=== PATIENT | female | born 1945 | race Caucasian/White ===

== ENCOUNTER 2020-02-20 11:49 | Emergency (ER) | payer OTHER ==
[~2020-02-20] VITALS: Ht 170.2 cm; Wt 158.8 kg
[2020-02-20 11:56] VITALS: BP 125/70
[2020-02-20] MEDS ORDERED: ONDANSETRON 4 MG/2 ML VIAL IVP ONE (13:25)
[2020-02-20] MEDS ORDERED: MORPHINE SULFATE 4 MG/ML SYR IVP ONE (13:25)
[2020-02-20 14:32] VITALS: BP 125/70
[2020-02-21] MEDS ORDERED: RIVA15TA1 PO (04:55)
[2020-02-21] MEDS ORDERED: TRAM50TA1 PO (04:55)
[2020-02-21] MEDS ORDERED: GLIP10TA3 PO (04:55)
[2020-02-21] MEDS ORDERED: PRAV20TA2 PO (04:55)
[2020-02-21] MEDS ORDERED: [UNRECOGNIZED DRUG - CODE] PO (04:55)
[2020-02-21] MEDS ORDERED: CHOL200072 PO (04:55)
[2020-02-21] MEDS ORDERED: AMLO5TAB PO (04:55)
[2020-02-21] MEDS ORDERED: BACL10TA4 PO (04:55)
== END 2020-02-20 14:33 | disposition home or self-care (01) ==
LOC: MED 11:49
DX: M54.2 Cervicalgia (principal); R51 Headache; E11.9 Type 2 diabetes mellitus without complications; I10 Essential (primary) hypertension
CPT/HCPCS: 70450; 72125; 96374; 96375; 99285; J2270; J2405

== ENCOUNTER 2020-02-21 02:54 | Inpatient (IN) | payer OTHER, SELFPAY ==
[~2020-02-21] VITALS: Ht 175.3 cm; Wt 133.8 kg
[2020-02-21 02:56] VITALS: BP 136/79
[2020-02-21] MEDS ORDERED: NACL 0.9% 1,000 ML IV ONE (03:10)
[2020-02-21 03:42] LABS: BASOPHILS # (AUTO) 0.1 K/uL (0.00-0.22); BASOPHILS % (AUTO) 0.4 % (0.0-2.0); EOSINOPHILS % (AUTO) 0.1 % (0.0-4.0); HEMATOCRIT 43.5 % (36-48); HEMOGLOBIN 14.5 g/dL (12.0-16.0); LYMPHOCYTES # (AUTO) 1.1 K/uL (2.5-16.5); LYMPHOCYTES % (AUTO) 9.2 % (20.5-51.1); MEAN CORPUSCULAR HEMOGLOBIN 30 pg (27-31); MEAN CORPUSCULAR HGB CONC 33 g/dL (33-37); MEAN CORPUSCULAR VOLUME 89.5 fL (80-94); MONOCYTES # (AUTO) 0.9 K/uL (0.8-1.0); MONOCYTES % (AUTO) 6.9 % (1.7-9.3); NEUTROPHILS # (AUTO) 10.3 K/uL (1.8-7.7); NEUTROPHILS % (AUTO) 83.4 % (42.2-75.2); PLATELET COUNT (AUTO) 324 K/uL (140-450); RED BLOOD CELL COUNT(AUTO) 4.85 MIL/uL (4.20-5.40); WHITE BLOOD COUNT (AUTO) 12.3 K/uL (4.8-10.8)
[2020-02-21 03:51] LABS: ALBUMIN 3.1 g/dL (3.4-5.0); ANION GAP 19.7 (8-16); ASPARTATE AMINOTRANSFERASE 13 U/L (15-37); CARBON DIOXIDE 22.5 mmol/L (21-32); CHLORIDE 89 mmol/L (98-107); CREATININE 1.3 mg/dL (0.6-1.3); GLUCOSE 159 mg/dL (74-106); POTASSIUM 4.2 mmol/L (3.5-5.1); SODIUM SERUM 127 mmol/L (136-145); TOTAL BILIRUBIN 1.2 mg/dL (0.0-1.0); UREA NITROGEN, BLOOD 35 mg/dL (7-18)
[2020-02-21 04:00] LABS: FREE T4 (FREE THYROXINE) 1.71 ng/dL (0.76-1.46); THYROID STIMULATING HORMONE 1.76 uIU/mL (0.34-3.74)
[2020-02-21] MEDS ORDERED: NACL 0.9% 1,000 ML IV SCH ×2 (04:35→05:49)
[2020-02-21] MEDS ORDERED: PRAV20TA2 PO (04:55)
[2020-02-21] MEDS ORDERED: TRAM50TA1 PO (04:55)
[2020-02-21] MEDS ORDERED: [UNRECOGNIZED DRUG - CODE] PO (04:55)
[2020-02-21] MEDS ORDERED: BACL10TA4 PO (04:55)
[2020-02-21] MEDS ORDERED: AMLO5TAB PO (04:55)
[2020-02-21] MEDS ORDERED: GLIP10TA3 PO (04:55)
[2020-02-21] MEDS ORDERED: RIVA15TA1 PO (04:55)
[2020-02-21] MEDS ORDERED: CHOL200072 PO (04:55)
[2020-02-21] MEDS ORDERED: HYDROcodone/APAP 5/325 MG 1 TAB TAB PO PRN (05:50)
[2020-02-21] MEDS ORDERED: ZOLPIDEM 5 MG TAB PO PRN (05:50)
[2020-02-21] MEDS ORDERED: LORazepam 2 MG/ML VIAL IM/IVP PRN (05:50)
[2020-02-21] MEDS ORDERED: ONDANSETRON 4 MG/2 ML VIAL IM/IVP PRN (05:50)
[2020-02-21] MEDS ORDERED: DOCUSATE SODIUM 100 MG GELCAP PO PRN (05:50)
[2020-02-21] MEDS ORDERED: POTASSIUM CHLORIDE 10 MEQ TABER PO PRN (05:50)
[2020-02-21] MEDS ORDERED: MAG SULF 2000 MG/WATER PREMIX 50 ML IV PRN (05:50)
[2020-02-21] MEDS ORDERED: ACETAMINOPHEN 325 MG TAB PO PRN (05:50)
[2020-02-21] MEDS ORDERED: MORPHINE SULFATE 2 MG/ML SYR IVP PRN (05:50)
[2020-02-21] MEDS ORDERED: traMADol 50 MG TAB PO PRN (05:55)
[2020-02-21] MEDS ORDERED: DEXTROSE 50% 50 ML SYR IVP PRN (07:35)
[2020-02-21] MEDS ORDERED: glipiZIDE 10 MG TAB PO SCH (07:55)
[2020-02-21 08:07] LABS: PROTHROMBIN TIME 10.3 secs (10.8-13.4)
[2020-02-21 08:18] LABS: APPEARANCE,URINE CLOUDY (CLEAR); BILIRUBIN,URINE 1+ (NEGATIVE); BLOOD, URINE NEGATIVE (NEGATIVE); COLOR,URINE AMBER (YELLOW); LEUKOCYTE ESTERASE ,URINE NEGATIVE (NEGATIVE); NITRITE, URINE NEGATIVE (NEGATIVE); UGLUCOSE NEGATIVE (NEGATIVE)
[2020-02-21] MEDS: NACL 0.9% 1,000 ML IV SCH ×2 (08:34→21:53)
[2020-02-21] MEDS: lisinopriL 20 MG TAB PO SCH (08:41)
[2020-02-21] MEDS: hydroCHLOROthiazide 25 MG TAB PO SCH (08:41)
[2020-02-21] MEDS: BACLOFEN 10 MG TAB PO SCH ×3 (08:41→17:30)
[2020-02-21] MEDS: CHOLECALCIFEROL 1,000 IU TAB PO SCH (08:42)
[2020-02-21] MEDS: RIVAROXABAN 15 MG TAB PO SCH (08:42)
[2020-02-21] MEDS: amLODIPine 5 MG TAB PO SCH (08:43)
[2020-02-21] MEDS ORDERED: NON-FORMULARY ITEM (Pravastatin Sodium* (Pravachol*) 20 MG) PO SCH (09:00)
[2020-02-21] MEDS ORDERED: NON-FORMULARY ITEM (Cholecalciferol (Vitamin D3) (Vitamin D3) 50 MCG) PO SCH (09:00)
[2020-02-21] MEDS ORDERED: NON-FORMULARY ITEM (Lisinopril/Hydrochlorothiazide (Lisinopril-Hctz 20-12.5 mg Tab) 1 TAB) PO SCH (09:00)
[2020-02-21 10:53] LABS: CHOL/HDL RATIO 2.8 (1-4.5); MAGNESIUM 1.7 mg/dL (1.8-2.4); PHOSPHORUS 3.3 mg/dL (2.5-4.9); THYROID STIMULATING HORMONE 1.75 uIU/mL (0.34-3.74)
[2020-02-21] MEDS: BLOOD GLUCOSE MONITORING 1 DEV DEV FS SCH ×3 (11:40→21:49)
[2020-02-21 13:46] LABS: ANION GAP 19.4 (8-16); CARBON DIOXIDE 22.2 mmol/L (21-32); CHLORIDE 90 mmol/L (98-107); CREATININE 1.1 mg/dL (0.6-1.3); GLUCOSE 116 mg/dL (74-106); POTASSIUM 3.6 mmol/L (3.5-5.1); SODIUM SERUM 128 mmol/L (136-145); UREA NITROGEN, BLOOD 29 mg/dL (7-18)
[2020-02-21 18:15] LABS: ANION GAP 21.4 (8-16); CARBON DIOXIDE 20.2 mmol/L (21-32); CHLORIDE 90 mmol/L (98-107); GLUCOSE 115 mg/dL (74-106); POTASSIUM 3.6 mmol/L (3.5-5.1); SODIUM SERUM 128 mmol/L (136-145); UREA NITROGEN, BLOOD 28 mg/dL (7-18)
[2020-02-21] MEDS: SIMVASTATIN 10 MG TAB PO SCH (21:17)
[2020-02-21] MEDS: INSULIN LISPRO SLIDING SCALE 100 UNITS/ML VIAL SUBQ PRN (21:51)
[2020-02-22 01:13] LABS: ANION GAP 21.3 (8-16); CARBON DIOXIDE 20.5 mmol/L (21-32); CHLORIDE 91 mmol/L (98-107); CREATININE 1.2 mg/dL (0.6-1.3); GLUCOSE 175 mg/dL (74-106); POTASSIUM 3.8 mmol/L (3.5-5.1); SODIUM SERUM 129 mmol/L (136-145); UREA NITROGEN, BLOOD 34 mg/dL (7-18)
[2020-02-22] MEDS: glipiZIDE 10 MG TAB PO SCH (06:12)
[2020-02-22 06:54] LABS: BASOPHILS % (AUTO) 0.3 % (0.0-2.0); HEMATOCRIT 45.2 % (36-48); LYMPHOCYTES # (AUTO) 1.1 K/uL (2.5-16.5); LYMPHOCYTES % (AUTO) 7.5 % (20.5-51.1); MEAN CORPUSCULAR HEMOGLOBIN 30 pg (27-31); MEAN CORPUSCULAR HGB CONC 33 g/dL (33-37); MEAN CORPUSCULAR VOLUME 90.1 fL (80-94); MONOCYTES # (AUTO) 0.8 K/uL (0.8-1.0); MONOCYTES % (AUTO) 5.4 % (1.7-9.3); NEUTROPHILS # (AUTO) 12.3 K/uL (1.8-7.7); NEUTROPHILS % (AUTO) 86.8 % (42.2-75.2); PLATELET COUNT (AUTO) 333 K/uL (140-450); RED BLOOD CELL COUNT(AUTO) 5.02 MIL/uL (4.20-5.40); RED CELL DISTRIBUTION WIDTH 13.3 % (11.6-13.7); WHITE BLOOD COUNT (AUTO) 14.2 K/uL (4.8-10.8)
[2020-02-22 07:06] LABS: ANION GAP 22.8 (8-16); CARBON DIOXIDE 17.1 mmol/L (21-32); CHLORIDE 92 mmol/L (98-107); CREATININE 1.4 mg/dL (0.6-1.3); GLUCOSE 182 mg/dL (74-106); POTASSIUM 3.9 mmol/L (3.5-5.1); SODIUM SERUM 128 mmol/L (136-145); UREA NITROGEN, BLOOD 38 mg/dL (7-18)
[2020-02-22 07:15] LABS: MAGNESIUM 1.8 mg/dL (1.8-2.4); PHOSPHORUS 3.2 mg/dL (2.5-4.9)
[2020-02-22] MEDS: BLOOD GLUCOSE MONITORING 1 DEV DEV FS SCH ×4 (07:47→21:38)
[2020-02-22] MEDS: INSULIN LISPRO SLIDING SCALE 100 UNITS/ML VIAL SUBQ PRN ×4 (07:58→22:09)
[2020-02-22 08:21] LABS: T4 (THYROXINE) 9.2 ug/dL (4.5-12.0)
[2020-02-22] MEDS ORDERED: ALBUTEROL SULFATE/IPRATROPIU 3 ML SOL IH PRN (09:10)
[2020-02-22] MEDS ORDERED: CRUSHER, PILL MC ONE (09:21)
[2020-02-22] MEDS: BACLOFEN 10 MG TAB PO SCH ×3 (09:46→17:05)
[2020-02-22] MEDS: amLODIPine 5 MG TAB PO SCH (09:47)
[2020-02-22] MEDS: hydroCHLOROthiazide 25 MG TAB PO SCH (09:47)
[2020-02-22] MEDS: RIVAROXABAN 15 MG TAB PO SCH (09:48)
[2020-02-22] MEDS: lisinopriL 20 MG TAB PO SCH (09:48)
[2020-02-22] MEDS: CHOLECALCIFEROL 1,000 IU TAB PO SCH (09:48)
[2020-02-22] MEDS: NACL 0.9% 1,000 ML IV SCH (12:17)
[2020-02-22] MEDS: SODIUM BICARBONATE 8.4% 50 MEQ in NACL 0.45% 1,000 ML IV SCH (14:42)
[2020-02-22] MEDS: SIMVASTATIN 10 MG TAB PO SCH (21:39)
[2020-02-23] MEDS: SODIUM BICARBONATE 8.4% 50 MEQ in NACL 0.45% 1,000 ML IV SCH ×2 (03:14→19:15)
[2020-02-23] MEDS: glipiZIDE 10 MG TAB PO SCH (05:58)
[2020-02-23] MEDS: BLOOD GLUCOSE MONITORING 1 DEV DEV FS SCH ×4 (07:38→21:00)
[2020-02-23] MEDS: INSULIN LISPRO SLIDING SCALE 100 UNITS/ML VIAL SUBQ PRN ×3 (08:15→18:31)
[2020-02-23 09:08] LABS: BASOPHILS % (AUTO) 0.1 % (0.0-2.0); EOSINOPHILS % (AUTO) 0.1 % (0.0-4.0); HEMATOCRIT 41.6 % (36-48); HEMOGLOBIN 13.7 g/dL (12.0-16.0); LYMPHOCYTES # (AUTO) 1.2 K/uL (2.5-16.5); LYMPHOCYTES % (AUTO) 6.3 % (20.5-51.1); MEAN CORPUSCULAR HEMOGLOBIN 30 pg (27-31); MEAN CORPUSCULAR HGB CONC 33 g/dL (33-37); MEAN CORPUSCULAR VOLUME 90.2 fL (80-94); MONOCYTES # (AUTO) 1.3 K/uL (0.8-1.0); MONOCYTES % (AUTO) 7.2 % (1.7-9.3); NEUTROPHILS # (AUTO) 15.8 K/uL (1.8-7.7); NEUTROPHILS % (AUTO) 86.3 % (42.2-75.2); PLATELET COUNT (AUTO) 311 K/uL (140-450); RED BLOOD CELL COUNT(AUTO) 4.61 MIL/uL (4.20-5.40); RED CELL DISTRIBUTION WIDTH 13.5 % (11.6-13.7); WHITE BLOOD COUNT (AUTO) 18.4 K/uL (4.8-10.8)
[2020-02-23] MEDS ORDERED: CRUSHER, PILL MC ONE (09:11)
[2020-02-23 09:16] LABS: ANION GAP 22.2 (8-16); CARBON DIOXIDE 18.5 mmol/L (21-32); CHLORIDE 93 mmol/L (98-107); POTASSIUM 3.7 mmol/L (3.5-5.1); SODIUM SERUM 130 mmol/L (136-145)
[2020-02-23 09:17] LABS: CREATININE 2.9 mg/dL (0.6-1.3); GLUCOSE 244 mg/dL (74-106)
[2020-02-23 09:25] LABS: MAGNESIUM 1.8 mg/dL (1.8-2.4); PHOSPHORUS 3.6 mg/dL (2.5-4.9)
[2020-02-23 09:44] LABS: UREA NITROGEN, BLOOD 65 mg/dL (7-18)
[2020-02-23] MEDS: BACLOFEN 10 MG TAB PO SCH ×3 (13:07→17:58)
[2020-02-23] MEDS: hydroCHLOROthiazide 25 MG TAB PO SCH (13:08)
[2020-02-23] MEDS: amLODIPine 5 MG TAB PO SCH (13:08)
[2020-02-23] MEDS: CHOLECALCIFEROL 1,000 IU TAB PO SCH (13:08)
[2020-02-23] MEDS: RIVAROXABAN 15 MG TAB PO SCH (13:08)
[2020-02-23] MEDS: lisinopriL 20 MG TAB PO SCH (13:09)
[2020-02-23] MEDS ORDERED: SODIUM BICARBONATE 8.4% PFS 50 MEQ/50 ML SYR IVP ONE (18:29)
[2020-02-23] MEDS ORDERED: cefTRIAXone 1,000 MG VIAL ONE (18:38)
[2020-02-23] MEDS ORDERED: INTUBATION KIT MC ONE (18:56)
[2020-02-23] MEDS ORDERED: AZITHROMYCIN 500 MG INJ VIAL IV ONE (20:32)
[2020-02-23] MEDS: AZITHROMYCIN 250 MG in DEXTROSE 5% 250 ML IV SCH (20:53)
[2020-02-24] MEDS: SIMVASTATIN 10 MG TAB PO SCH ×2 (00:55→21:32)
[2020-02-24] MEDS: glipiZIDE 10 MG TAB PO SCH (06:28)
[2020-02-24] MEDS: BLOOD GLUCOSE MONITORING 1 DEV DEV FS SCH ×4 (07:30→21:15)
[2020-02-24] MEDS: SODIUM BICARBONATE 8.4% 50 MEQ in NACL 0.45% 1,000 ML IV SCH ×2 (08:05→22:05)
[2020-02-24 08:51] LABS: BASOPHILS % (AUTO) 0.3 % (0.0-2.0); EOSINOPHILS # (AUTO) 0.1 K/uL (0-0.4); EOSINOPHILS % (AUTO) 0.8 % (0.0-4.0); HEMATOCRIT 38.5 % (36-48); LYMPHOCYTES # (AUTO) 1.7 K/uL (2.5-16.5); MEAN CORPUSCULAR HEMOGLOBIN 30 pg (27-31); MEAN CORPUSCULAR HGB CONC 34 g/dL (33-37); MEAN CORPUSCULAR VOLUME 89.5 fL (80-94); MONOCYTES # (AUTO) 0.9 K/uL (0.8-1.0); MONOCYTES % (AUTO) 7.3 % (1.7-9.3); NEUTROPHILS # (AUTO) 9.3 K/uL (1.8-7.7); NEUTROPHILS % (AUTO) 77.6 % (42.2-75.2); PLATELET COUNT (AUTO) 285 K/uL (140-450); RED BLOOD CELL COUNT(AUTO) 4.31 MIL/uL (4.20-5.40); RED CELL DISTRIBUTION WIDTH 13.7 % (11.6-13.7); WHITE BLOOD COUNT (AUTO) 11.9 K/uL (4.8-10.8)
[2020-02-24] MEDS: amLODIPine 5 MG TAB PO SCH (09:00)
[2020-02-24] MEDS: RIVAROXABAN 15 MG TAB PO SCH (09:00)
[2020-02-24] MEDS: CHOLECALCIFEROL 1,000 IU TAB PO SCH (09:00)
[2020-02-24] MEDS: BACLOFEN 10 MG TAB PO SCH ×3 (09:00→16:48)
[2020-02-24 09:25] VITALS: BP 153/78
[2020-02-24 10:49] LABS: ANION GAP 15.1 (8-16); CARBON DIOXIDE 25.4 mmol/L (21-32); CHLORIDE 95 mmol/L (98-107); CREATININE 1.2 mg/dL (0.6-1.3); GLUCOSE 237 mg/dL (74-106); POTASSIUM 3.5 mmol/L (3.5-5.1); SODIUM SERUM 132 mmol/L (136-145); UREA NITROGEN, BLOOD 39 mg/dL (7-18)
[2020-02-24 12:00] VITALS: BP 145/83
[2020-02-24] MEDS: INSULIN LISPRO SLIDING SCALE 100 UNITS/ML VIAL SUBQ PRN ×3 (12:49→21:20)
[2020-02-24 16:00] VITALS: BP 144/69
[2020-02-24] MEDS: AZITHROMYCIN 250 MG in DEXTROSE 5% 250 ML IV SCH (17:54)
[2020-02-24 20:00] VITALS: BP 156/74
[2020-02-25] VITALS: BP 148/75
[2020-02-25] MEDS: SODIUM BICARBONATE 8.4% 50 MEQ in NACL 0.45% 1,000 ML IV SCH ×3 (03:07→17:33)
[2020-02-25 04:00] VITALS: BP 147/76
[2020-02-25 06:15] LABS: BASOPHILS # (AUTO) 0.1 K/uL (0.00-0.22); BASOPHILS % (AUTO) 0.6 % (0.0-2.0); EOSINOPHILS # (AUTO) 0.1 K/uL (0-0.4); EOSINOPHILS % (AUTO) 1.3 % (0.0-4.0); HEMATOCRIT 36.9 % (36-48); HEMOGLOBIN 12.5 g/dL (12.0-16.0); LYMPHOCYTES # (AUTO) 1.9 K/uL (2.5-16.5); LYMPHOCYTES % (AUTO) 17.6 % (20.5-51.1); MEAN CORPUSCULAR HEMOGLOBIN 30 pg (27-31); MEAN CORPUSCULAR HGB CONC 34 g/dL (33-37); MEAN CORPUSCULAR VOLUME 89.4 fL (80-94); MONOCYTES % (AUTO) 9.6 % (1.7-9.3); NEUTROPHILS # (AUTO) 7.7 K/uL (1.8-7.7); NEUTROPHILS % (AUTO) 70.9 % (42.2-75.2); PLATELET COUNT (AUTO) 284 K/uL (140-450); RED BLOOD CELL COUNT(AUTO) 4.13 MIL/uL (4.20-5.40); RED CELL DISTRIBUTION WIDTH 13.1 % (11.6-13.7); WHITE BLOOD COUNT (AUTO) 10.8 K/uL (4.8-10.8)
[2020-02-25] MEDS: glipiZIDE 10 MG TAB PO SCH (06:23)
[2020-02-25] MEDS: INSULIN LISPRO SLIDING SCALE 100 UNITS/ML VIAL SUBQ PRN ×3 (06:23→22:05)
[2020-02-25] MEDS: BLOOD GLUCOSE MONITORING 1 DEV DEV FS SCH ×4 (06:37→21:40)
[2020-02-25 07:16] LABS: ANION GAP 10.9 (8-16); CARBON DIOXIDE 29.3 mmol/L (21-32); CHLORIDE 94 mmol/L (98-107); CREATININE 0.9 mg/dL (0.6-1.3); GLUCOSE 268 mg/dL (74-106); POTASSIUM 3.2 mmol/L (3.5-5.1); SODIUM SERUM 131 mmol/L (136-145); UREA NITROGEN, BLOOD 26 mg/dL (7-18)
[2020-02-25 08:00] VITALS: BP 148/79
[2020-02-25] MEDS: BACLOFEN 10 MG TAB PO SCH ×3 (08:45→17:33)
[2020-02-25] MEDS: amLODIPine 5 MG TAB PO SCH (08:45)
[2020-02-25] MEDS: CHOLECALCIFEROL 1,000 IU TAB PO SCH (08:45)
[2020-02-25] MEDS: RIVAROXABAN 15 MG TAB PO SCH (09:00)
[2020-02-25 12:00] VITALS: BP 142/83
[2020-02-25 16:00] VITALS: BP 161/61
[2020-02-25] MEDS: AZITHROMYCIN 250 MG in DEXTROSE 5% 250 ML IV SCH (17:15)
[2020-02-25 21:00] VITALS: BP 147/61
[2020-02-25] MEDS: SIMVASTATIN 10 MG TAB PO SCH (21:40)
[2020-02-26 00:45] VITALS: BP 156/64
[2020-02-26 04:00] VITALS: BP 148/71
[2020-02-26 05:42] LABS: BASOPHILS % (AUTO) 0.5 % (0.0-2.0); EOSINOPHILS # (AUTO) 0.1 K/uL (0-0.4); EOSINOPHILS % (AUTO) 1.7 % (0.0-4.0); HEMATOCRIT 39.3 % (36-48); HEMOGLOBIN 13.1 g/dL (12.0-16.0); LYMPHOCYTES # (AUTO) 1.7 K/uL (2.5-16.5); LYMPHOCYTES % (AUTO) 19.7 % (20.5-51.1); MEAN CORPUSCULAR HEMOGLOBIN 30 pg (27-31); MEAN CORPUSCULAR HGB CONC 33 g/dL (33-37); MEAN CORPUSCULAR VOLUME 90.1 fL (80-94); MONOCYTES # (AUTO) 0.9 K/uL (0.8-1.0); MONOCYTES % (AUTO) 10.3 % (1.7-9.3); NEUTROPHILS # (AUTO) 5.9 K/uL (1.8-7.7); NEUTROPHILS % (AUTO) 67.8 % (42.2-75.2); PLATELET COUNT (AUTO) 292 K/uL (140-450); RED BLOOD CELL COUNT(AUTO) 4.36 MIL/uL (4.20-5.40); WHITE BLOOD COUNT (AUTO) 8.8 K/uL (4.8-10.8)
[2020-02-26 06:07] LABS: ANION GAP 12.2 (8-16); CARBON DIOXIDE 31.2 mmol/L (21-32); CHLORIDE 92 mmol/L (98-107); CREATININE 0.8 mg/dL (0.6-1.3); GLUCOSE 197 mg/dL (74-106); POTASSIUM 3.4 mmol/L (3.5-5.1); SODIUM SERUM 132 mmol/L (136-145); UREA NITROGEN, BLOOD 19 mg/dL (7-18)
[2020-02-26] MEDS: BLOOD GLUCOSE MONITORING 1 DEV DEV FS SCH ×3 (06:31→16:44)
[2020-02-26] MEDS: glipiZIDE 10 MG TAB PO SCH (06:31)
[2020-02-26] MEDS: INSULIN LISPRO SLIDING SCALE 100 UNITS/ML VIAL SUBQ PRN ×3 (06:34→17:09)
[2020-02-26 08:00] VITALS: BP 150/77
[2020-02-26] MEDS: RIVAROXABAN 15 MG TAB PO SCH (09:14)
[2020-02-26] MEDS: CHOLECALCIFEROL 1,000 IU TAB PO SCH (09:14)
[2020-02-26] MEDS: BACLOFEN 10 MG TAB PO SCH ×3 (09:14→17:05)
[2020-02-26] MEDS: amLODIPine 5 MG TAB PO SCH (09:21)
[2020-02-26 12:00] VITALS: BP 159/80
[2020-02-26 16:00] VITALS: BP 154/74
[2020-02-26] MEDS: SODIUM BICARBONATE 8.4% 50 MEQ in NACL 0.45% 1,000 ML IV SCH (16:05)
[2020-02-26] MEDS: AZITHROMYCIN 250 MG in DEXTROSE 5% 250 ML IV SCH (18:30)
[2020-02-26 18:48] VITALS: BP 150/70
== END 2020-02-26 20:20 | DRG 871 ==
LOC: MED 02:54 → MTU 04:36 → MMU 12:40 → MTU 02-23 17:07
DX: A41.9 Sepsis, unspecified organism (principal); N17.0 Acute kidney failure with tubular necrosis; J18.9 Pneumonia, unspecified organism; G93.41 Metabolic encephalopathy; E87.1 Hypo-osmolality and hyponatremia; Z68.41 Body mass index [BMI] 40.0-44.9, adult; Z86.711 Personal history of pulmonary embolism; E66.9 Obesity, unspecified; E11.65 Type 2 diabetes mellitus with hyperglycemia; E86.0 Dehydration; N18.3 Chronic kidney disease, stage 3 (moderate); E11.22 Type 2 diabetes mellitus with diabetic chronic kidney disease; I13.10 Hypertensive heart and chronic kidney disease without heart failure, with stage 1 through stage 4 chronic kidney disease, or unspecified chronic kidney disease; Z20.828 Contact with and (suspected) exposure to other viral communicable diseases
CPT/HCPCS: 36415; 70450; 71045; 72125; 76770; 80048; 80053; 81003; 82150; 82436; 82570; 82948; 83036; 83690; 83735; 83880; 84100; 84134; 84300; 84436; 84439; 84443; 84484; 85025; 85610; 85730; 87040; 87081; 93005; 96360; 96374; 96375; 97110; 97112; 97161-GP; 99285; J0456; J0696; J2270; J2405; J3490; J7060; Q0092; U0003-CS